=== PATIENT | female | born 1965 | race African-American/Black ===

== ENCOUNTER 2018-01-28 20:25 | Observation (INO) | payer MEDICARE ==
--- NOTE | 2018-01-28 21:00 | RAD ---
CHEST ONE VIEW 01/28/18 HISTORY: Chest pain. COMPARISON: None. FINDINGS: Lungs are clear. No pneumothorax or effusion. Cardiac silhouette and mediastinal contours are within normal limits. Multiple median sternotomy wires. Moderate degenerative disease acromioclavicular joints. IMPRESSION: No acute intrathoracic abnormality. POS: H
[2018-01-28 21:41] LABS: ALT (SGPT) 20 U/L (8-55); AST (SGOT) 22 U/L (5-34); Alkaline Phosphatase 138 U/L (40-150); Anion Gap 14 mmol/L (10-20); BUN (Urea Nitrogen) 11 mg/dL (9.8-20.1); Bilirubin, Total 0.2 mg/dL (0.2-1.2); CK (CPK) 306 U/L (29-168); Calc. Creatinine Clearance 0 mL/min (70-130); Carbon Dioxide 19 mmol/L (22-29); Chloride 107 mmol/L (98-107); Estimated GFR-MDRD Greater than 90; Glucose 99 mg/dL (70-105); Lipase 24 U/L (8-78); Potassium 4.2 mmol/L (3.5-5.1); Sodium 136 mmol/L (136-145)
[2018-01-28 21:45] LABS: CKMB 1.2 ng/mL (0-6.6); Troponin I Less than 0.010 ng/mL (< 0.028)
[2018-01-28 21:55] LABS: Hemoglobin 13.2 g/dL (12.0-16.0); Lymphocytes 33 % (21-51); MDiff Complete? YES; Mean Corpuscular HGB CONC 32.2 g/dL (32.0-36.0); Mean Corpuscular Hemoglobin 29.2 pg (27.0-31.0); Mean Corpuscular Volume 90.8 fl (81.0-99.0); Mean Platelet Volume 6.7 fL (7.4-10.4); Monocytes 7 % (0-10); Neutrophil 56 % (42-75); PLT Morphology Comment Appears Adequate; Platelet Count 216 thou/uL (130-400); RBC Distribution Width 12.5 % (11.5-14.5); RBC Morphology Normal; Reactive Lymphocytes 4 % (0-10); White Blood Cell (WBC) Count 11.3 thou/uL (4.8-10.8)
[2018-01-29 01:05] LABS: Troponin I 0.012 ng/mL (< 0.028)
[2018-01-29 02:17] VITALS: BMI 40.2
[2018-01-29 03:52] LABS: Troponin I 0.013 ng/mL (< 0.028)
[2018-01-29] MEDS ORDERED: Lisinopril 20 MG TAB PO SCH (10:00)
[2018-01-29] MEDS ORDERED: Gabapentin 300 MG CAP PO SCH (10:00)
[2018-01-29] MEDS ORDERED: Aspirin 325 MG TAB PO SCH (10:00)
--- NOTE | 2018-01-29 12:36 | CON ---
DATE OF CONSULTATION: 01/29/2018. REASON FOR CONSULTATION: Chest pain. HISTORY OF PRESENT ILLNESS: Ms. Sarabia is a very pleasant 52-year-old female who co mes to the hospital for chest pain. She is a patient of mine. She was seen last year initially for out of hospital ventricular fibrillation arrest, was resuscitated successfully, taken to the crime lab analyst and found to have left main disease and moderate aortic valve regurgitation. Her LV function was re duced and eventually improved, so she was taken to the OR and Dr. Vigil performed bypass x2 with a LI MA and a vein to LAD and left circumflex. She also had aortic valve replacement. She has been havin g a lot of chest discomfort since her surgery, mostly related to just nervous pain and some sort of n europathy. I saw her last about 2 months ago in the office and I recommended a stress test, which alvarez brandt never had done because there was some copay that she could not afford. She never requested any hel p with this whatsoever. She had decided that she had a followup appointment with me in May, so she was just going to wait until then, but she started having significantly worsening pain yesterday , so she decided to come in for this. Currently, her pain is much better. She describes that the ti ngling on her chest is at the midsternal area, radiated to the left arm. PAST MEDICAL HISTORY: 1. Coronary artery disease as above. 2. Moderate aortic insufficiency. 3. Status post coronary valve grafting x2, WILKINSON to the LAD and a vein to circumflex. 4. Status post bioprosthetic aortic valve replacement. 5. Ischemic cardiomyopathy with normalized EF on last echo. OUTPATIENT MEDICATIONS: Include, 1. Sertraline 50 mg a day. 2. Gabapentin 300 mg b.i.d. 3. Lisinopril 20 mg a day. 4. Aspirin 325 a day. ALLERGIES: No known drug allergies; however, she has been intolerant to statins. She has also been intolerant to beta blockers. SOCIAL HISTORY: Former smoker, quit since her initial episode a year ago. No alcohol or drug use. FAMILY HISTORY: Noncontributory. REVIEW OF SYSTEMS: A 12-point review of systems was done and is all negative unless stated in the hi story of present illness. PHYSICAL EXAMINATION: VITAL SIGNS: Temperature 97.5, pulse 60, respiration rate 18, satting 93% on room air, blood pressur e 118/77. GENERAL: Awake, alert and oriented x3, in no distress. HEENT: Normocephalic, atraumatic. NECK: Supple. LUNGS: Clear. CARDIOVASCULAR: S1, S2. No S3 or S4. There is a grade 2/6 systolic murmur in the right sternal bor brit. ABDOMEN: Soft, positive bowel sounds. EXTREMITIES: No edema. SKIN: Warm and dry. LABORATORY WORK: Reviewed. CBC unremarkable except for white count of 11.3. Chemistry is unremarka ble. Normal BUN and creatinine and GFR greater than 90. Troponins are negative x3. EKG was unchanged. ASSESSMENT AND PLAN: Chest pain: We will do a nuclear stress test to evaluate for ischemia. This i s unlikely. Most likely, this is related to chest wall pain, but we will evaluate. Thank you for letting us to participate in the care of your patient. We will follow.
[2018-01-29] MEDS ORDERED: Acetaminophen/Codeine 30-300mg Tablet PO PRN (17:08)
[2018-01-29] MEDS: Gabapentin 300 MG CAP PO SCH (20:27)
--- NOTE | 2018-01-30 07:21 | HP ---
REASON FOR ADMISSION: 01/29/2018 REASON/CHIEF COMPLAINT: Chest pain. HISTORY OF PRESENT ILLNESS: Ms. Lyn Sarabia is a 52-year-old - [place] female with past medical history of coronary artery disease, status post CABG, hypertension, diabetes mellitus came because of this chest burning and pain in the retrosternal area, nonradiating, associated with some shortness of breath, nausea, but no diaphoresis. Patient states the pain got worse now, so she decided to come to the hospital. She also had some arm tingling as well. She felt like that it is burning like a sunburn. EMS was called. EMS gave the patient nitro. She states the nitro relieved her pain. By the time, she came to the hospital, she did not have that pain. In view of her cardiac arrest problems, patient was admitted to rule out myocardial infarction. PAST MEDICAL HISTORY: 1. Coronary artery disease. 2. Hypertension. 3. Chronic back pain. 4. Hyperlipidemia. PAST SURGICAL HISTORY: Status post aortic valve replacement, status post CABG in 2017. CURRENT MEDICATIONS: Patient is on gabapentin 300 b.i.d., lisinopril 20 mg daily, sertraline 50 mg daily, aspirin 325 mg daily. ALLERGIES: MOTRIN. SOCIAL HISTORY: Patient lives with family. No history of smoking, alcohol, illegal drug use. REVIEW OF SYSTEMS: Cardiovascular: Has chest pain. No shortness of breath. Respiratory: No fever or cough. Gastrointestinal: No nausea or vomiting. 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 PHYSICAL EXAMINATION: GENERAL: The patient is alert, awake, oriented x3. VITAL SIGNS: Temperature 98, pulse 60, respirations 20, blood pressure 120/ 60. HEENT: Head is normocephalic, atraumatic. Pupils equal and reactive to light. Nasopharynx is pink and moist. NECK: Supple. NO JVD LUNGS: Bilateral air entry present, no rales, no rhonchi. Chest wall tender anteriorly. CARDIAC: S1, S2 regular. ABDOMEN: Soft, no distention, no tenderness. Normal bowel sounds. EXTREMITIES: No edema. CENTRAL NERVOUS SYSTEM: No focal deficits noted. LABORATORY AND X-RAY FINDINGS: CBC shows WBC 11, hemoglobin 13, hematocrit 40, platelets 216. Metabolic panel: Sodium 136, potassium 4.8, chloride 107, CO2 of 19, BUN 11, creatinine 0.7, glucose 99. CK-MB 1.8, troponin I less than 0.010. EKG shows normal sinus rhythm, no acute ST-T wave changes seen. Chest x -ray negative. ASSESSMENT: 1. Chest pain, atypical, rule out myocardial infarction. 2. Coronary artery disease, status post coronary artery bypass graft. 3. Diabetes mellitus. 4. Hypertension. 5. Hyperlipidemia. PLAN: 1. Vital signs q.4 hours. 2. Activity: As tolerated. 3. Allergies: MOTRIN. 4. Hep-Lock. 5. Diet: Cardiac. ADA. 6. Continue home medication. 7. Stress test. 8. Cardiology consult. MTDD
[2018-01-30] MEDS: Gabapentin 300 MG CAP PO SCH (08:34)
[2018-01-30] MEDS ORDERED: Aspirin 325 MG TAB PO SCH (09:00)
[2018-01-30] MEDS ORDERED: Lisinopril 20 MG TAB PO SCH (09:00)
[2018-01-30] MEDS ORDERED: ADENOSINE 60 MG/20 ML VIAL ONE (10:11)
[2018-01-30 12:38] VITALS: BP 152/67; TEMP 97.7
--- NOTE | 2018-01-30 13:10 | STRESS ---
Acquisition Time: 2018-01-30 11:24:12 Total Exercise Time: 00:04:00 Test Indications: CHEST PAIN Medications: Protocol: ADENOSINE Max HR: 109 BPM 64% of Pred: 168 BPM Max BP: 180/080 mmHG Max Work Load: 1.0 METS RESTING ECG: NORMAL SINUS RHYTHM AT 68 BPM WITH NON-SPECFIC ST SEGMENT CHANGES SYMPTOMS: NONE NORMAL BP RESPONSE ECTOPY: NONE ECG STRESS: NO SIGNIFICANT CHANGES; TRANSIENT NON-SPECIFIC ST SEGMENT AND T-WAVE CHANGES WITH ADENOSINE INFUSION INTERPRETATION: INDETERMINATE ECG/AWAIT NUCLEAR IMAGES FOR DEFINITIVE DIAGNOSIS Confirmed by FIGUEROA SANTOS ([id number]) on 01/30/2018 1:09:31 PM Referred By: MD Kaveh HUBBARD Confirmed By:FIGUEROA SANTOS
--- NOTE | 2018-01-30 14:02 | NM ---
NUCLEAR MEDICINE CARDIAC PERFUSION EXAMINATION WITH EJECTION FRACTION: COMPARISON: None. HISTORY: A 52-year-old female with chest pain. History of coronary artery disease. TECHNIQUE: A 2-day nuclear medicine cardiac perfusion examination was performed. Rest images were obtained usin g 27 mCi of Technetium 99m sestamibi. Stress images were obtained using 33 mCi of Technetium 99m ses tamibi and adenosine. FINDINGS: Tomographic images showed no fixed or reversible perfusion defects. Gated images show normal wall mo tion with an ejection fraction of 66%. EDV is 94 mL. LHR is 0.3. TID is 1.2. IMPRESSION: No evidence of ischemia. POS: MITCHEL
--- NOTE | 2018-01-30 14:48 | PDOC.CTH ---
Cardiology Progress Note - Subjective The Pt seen and examined. No overnight events. No cardiac complaints. She is ready to d/c home. - Objective Vital Signs Temp Pulse Resp BP Pulse Ox 01/30/18 12:32 97.7 F 79 16 152/67 H 95 01/30/18 08:00 97.8 F 58 L 16 127/59 L 96 01/30/18 07:56 97.8 F 80 14 01/30/18 04:20 97.8 F 80 14 106/54 L 94 L Weight 216 lb 3.2 oz 01/29/18 01/30/18 01/31/18 06:59 06:59 06:59 Intake Total 240 950 Balance 240 950 - Physical Examination General/Neuro: alert & oriented x3 Neck: no JVD present Lungs: CTA Heart: RRR Abdomen: soft Extremities: other: - Telemetry Telemetry Rhythm: SR - Labs Result Diagrams: 01/28/18 21:15 01/28/18 21:15 Troponin/CKMB CK-MB (CK-2) 1.2 ng/mL (0-6.6) 01/28/18 21:15 Troponin I 0.013 ng/mL (< 0.028) 01/29/18 03:12 - Assessment/Plan 1. Chest pain - Stress test was normal today. Asymptomatic at this time 2. Ischemic CMY - no edema or SOB; stable 3. CAD with S/P CABG x 3 in 10/2016 - stable; on Maurisio and ASA; May start BBlocker and Statin as outpt (by Dr Alaniz) 4. Moderate AI s/p AVR, bioprosthetic - stable MAR reviewed * The prescription of NTG 0.4mg was sent to her pharmacy from Dr Alaniz's office today as the pt's request. * The pt lexx f/u with Dr Aalniz within 2-4 wks. Review of Systems - Review of Systems Constitutional: reports: no symptoms reported EENTM: reports: no symptoms reported Respiratory: reports: no symptoms reported Cardiac (ROS): reports: no symptoms reported ABD/GI: reports: no symptoms reported : reports: no symptoms reported
--- NOTE | 2018-01-31 15:23 | EKG ---
Test Reason : Blood Pressure : / mmHG Vent. Rate : 078 BPM Atrial Rate : 078 BPM P-R Int : 136 ms QRS Dur : 082 ms QT Int : 398 ms P-R-T Axes : 067 054 105 degrees QTc Int : 453 ms Normal sinus rhythm Minimal voltage criteria for LVH, may be normal variant Nonspecific T wave abnormality Abnormal ECG Confirmed by JAMES COHN, ISADORA Singh ([id number]), art editor GABRIELLE LLAMAS ([id number]) on 01/31/2018 3:22:59 PM Referred By: Confirmed By:ISADORA RAMIREZ MD
--- NOTE | 2018-02-02 10:15 | DIS ---
DATE OF ADMISSION: 01/29/2018 DATE OF DISCHARGE: 01/30/2018 ADMITTING DIAGNOSES: 1. Chest pain, atypical, rule out myocardial; coronary artery disease, status post coronary artery b ypass grafting. 2. Diabetes mellitus. 3. Hypertension. 4. Hyperlipidemia. FINAL DIAGNOSES: 1. Chest pain, atypical, no evidence of acute myocardial infarction. Negative Cardiolite stress hilaria t. 2. Coronary artery disease, status post coronary artery bypass grafting. 3. Diabetes mellitus. 4. Hypertension. 5. Hyperlipidemia. BRIEF SUMMARY OF HOSPITAL COURSE: Ms. Sarabia is a 52-year-old female complaining of left-sided chest pain, sharp in nature, not associated with any shortness of breath. The patient knox s history of coronary artery disease status post CABG as well as hypertension and diabetes. In view of risk factor, the patient was admitted to rule out MS. Serial cardiac enzymes were done, they were within normal limits. A Cardiolite stress test was done and it was reported as negative for ischemi a. The patient's chest pain resolved next day. In view of improvement, the patient was discharged. At the time of discharge, she was stable. Her vital signs stable. Lungs clear. Heart sounds regul ar. Abdomen was soft, nontender. DISCHARGE MEDICATIONS: Include: 1. Aspirin 325 mg daily. 2. Gabapentin 300 mg b.i.d. 3. Sertraline 50 mg daily. 4. Lisinopril 20 mg daily. FOLLOWUP: The patient will come for followup in 2 weeks.
== END 2018-01-30 14:40 | disposition home or self-care (01) ==
LOC: ERS 20:25 → 2SW 01-29 01:36
PROVIDERS: ADMIT Internal Medicine; ATTEND Internal Medicine
DX: R07.89 Other chest pain (principal); I25.10 Atherosclerotic heart disease of native coronary artery without angina pectoris; I10 Essential (primary) hypertension; E78.5 Hyperlipidemia, unspecified; G89.29 Other chronic pain; M54.9 Dorsalgia, unspecified; I25.5 Ischemic cardiomyopathy; E11.9 Type 2 diabetes mellitus without complications; Z87.891 Personal history of nicotine dependence; Z79.82 Long term (current) use of aspirin; Z79.899 Other long term (current) drug therapy; Z88.6 Allergy status to analgesic agent; Z95.1 Presence of aortocoronary bypass graft; Z95.2 Presence of prosthetic heart valve
CPT/HCPCS: 71045; 78452; 80053; 82550; 82553; 83690; 84484 ×3; 85025; 93005; 93017; 99285; A9500; G0378; 36415; J0153